=== PATIENT | male | born 1955 | race Two or more races ===

== ENCOUNTER 2021-05-09 15:43 | Emergency (ER) | payer OTHER ==
[~2021-05-09] VITALS: Ht 172.7 cm; Wt 79.4 kg
[2021-05-09] MEDS ORDERED: AMOX-CLAV 875-1 EAC1 PO (16:40)
== END 2021-05-09 17:15 | disposition home or self-care (01) ==
LOC: ER 15:43
DX: S61.215A Laceration without foreign body of left ring finger without damage to nail, initial encounter (principal); S61.211A Laceration without foreign body of left index finger without damage to nail, initial encounter; W31.2XXA Contact with powered woodworking and forming machines, initial encounter; Y93.9 Activity, unspecified; Y92.89 Other specified places as the place of occurrence of the external cause; Y99.9 Unspecified external cause status; Z91.013 Allergy to seafood